=== PATIENT | male | born 1975 | race Caucasian/White ===

== ENCOUNTER 2019-03-19 14:44 | Emergency (ER) | payer SELFPAY ==
--- NOTE | 2019-03-19 16:12 | ED ---
Upper Extremity Pain - HPI Summary HPI Summary: The patient is a 43 y/o M presenting to [facility] with a chief complaint of immediate onset pain in the LUE s/p falling off a deck at 1400 today. He reports that he was standing on a deck located about 2-3 feet off the ground, when he slipped and fell. He believes he landed palm down on the left arm, and he is now experiencing pain near the medial elbow in the proximal forearm. He denies any other complaints including numbness or tingling, or RUE pain. Currently, his aching pain is rated 4-5/10 in severity, which is better than initial arrival with rating of 6-7/10. Movement aggravates the pain and rest alleviates it, although there is no significant decreased ROM. PMHx: asthma. Nonsmoker, daily EtOH, marijuana use. Medications reviewed. Allergies noted. - History of Current Complaint Chief Complaint: EDExtremityUpper Stated Complaint: ARM INJURY Time Seen by Provider: 03/19/19 16:00 Hx Obtained From: Patient Mechanism Of Injury: Fall From Height Of: - 2-3 feet off a deck Onset/Duration: Started Hours Ago - at 1400 today, Still Present Timing: Lasting Hours Severity Initially: Moderate - 6-7/10 Severity Currently: Moderate - 4-5/10 Pain Location: Elbow - left medial Character: Aching Aggravating Factor(s): Movement Alleviating Factor(s): Rest Associated Signs & Symptoms: Positive: Other - Negative: pain in RUE, decreased ROM on left. Negative: Numbness/Tingling - Allergies/Home Medications Allergies/Adverse Reactions: Allergies Allergy/AdvReac Type Severity Reaction Status Date / Time No Known Allergies Allergy Verified 03/19/19 14:51 Home Medications: Home Medications Albuterol HFA INHALER* [Ventolin HFA Inhaler*] 2 puff INH Q6H PRN 03/19/19 [ History Confirmed 03/19/19] PMH/Surg Hx/FS Hx/Imm Hx Endocrine/Hematology History: Denies: Hx Diabetes Cardiovascular History: Denies: Hx Hypercholesterolemia, Hx Hypertension Respiratory History: Reports: Hx Asthma - Surgical History Surgical History: None Surgery Procedure, Year, and Place: none Infectious Disease History: No Infectious Disease History: Denies: Traveled Outside the [place] in Last 30 Days - Family History Known Family History: Negative: Hypertension, Seizure Disorder - Social History Alcohol Use: Daily Hx Substance Use: Yes Substance Use Type: Reports: Marijuana Hx Tobacco Use: No Smoking Status (MU): Never Smoked Tobacco Review of Systems Positive: Other - Positive: pain in the LUE close to the medial elbow in the proximal forearm. Negative: pain in RUE.. Negative: Decreased ROM Negative: Numbness - or tingling All Other Systems Reviewed And Are Negative: Yes Physical Exam - Summary Physical Exam Summary: VITAL SIGNS: Reviewed. GENERAL: Patient is a well-developed and nourished male who is lying comfortable in the stretcher. Patient is not in any acute respiratory distress. HEAD AND FACE: No signs of trauma. No ecchymosis, hematomas or skull depressions. No sinus tenderness. EYES: PERRLA, EOMI x 2, No injected conjunctiva, no nystagmus. EARS: Hearing grossly intact. Ear canals and tympanic membranes are within normal limits. MOUTH: Oropharynx within normal limits. NECK: Supple, trachea is midline, no adenopathy, no JVD, no carotid bruit, no c- spine tenderness, neck with full ROM. CHEST: Symmetric, no tenderness at palpation. LUNGS: Clear to auscultation bilaterally. No wheezing or crackles. CVS: Regular rate and rhythm, S1 and S2 present, no murmurs or gallops appreciated. ABDOMEN: Soft, non-tender. No signs of distention. No rebound, no guarding, and no masses palpated. Bowel sounds are normal. EXTREMITIES: FROM in all major joints, no edema, no cyanosis or clubbing. NEURO: Alert and oriented x 3. No acute neurological deficits. Speech is normal and follows commands. SKIN: Dry and warm. Triage Information Reviewed: Yes Vital Signs On Initial Exam: Initial Vitals Temp Pulse Resp BP Pulse Ox 98.3 F 68 16 138/88 98 03/19/19 14:48 03/19/19 14:48 03/19/19 14:48 03/19/19 14:48 03/19/19 14:48 Vital Signs Reviewed: Yes Diagnostics - Vital Signs Vital Signs Temp Pulse Resp BP Pulse Ox 03/19/19 14:48 98.3 F 68 16 138/88 98 - Laboratory Lab Statement: Any lab studies that have been ordered have been reviewed, and results considered in the medical decision making process. - Radiology Left Elbow X-ray Radiology Interpretation Completed By: Radiologist Summary of Radiographic Findings: Impression: Soft tissue swelling, no fracture is seen. ED physician has reviewed this imaging report. Re-Evaluation - Re-Evaluation First Eval Re-Evaluation Time: 17:10 Comment: We discussed XR results and discharge plan. Course/Dx - Course Assessment/Plan: Patient is a 43 y/o M with chief complaint of pain in the left elbow after falling off a deck at 1400 today. No other complaints at this time including numbness or decreased ROM. Physical exam shows no obvious deficits or deformities. X-ray of the left elbow shows no fracture or dislocation. Therefore , the patient will be discharged home with follow-up with PCP. The patient is hemodynamically stable alert and oriented 3. - Diagnoses Provider Diagnoses: Elbow contusion Discharge ED - Sign-Out/Discharge Documenting (check all that apply): Patient Departure - Patient will be discharged home. Patient Received Moderate/Deep Sedation with Procedure: No - Discharge Plan Condition: Stable Disposition: HOME Patient Education Materials: Elbow Sprain (ED) Referrals: Ella Mcnair MD [Primary Care Provider] - 3 Days Additional Instructions: Follow up with your primary care provider in 2-3 days. Return to the emergency department for any new or worsening symptoms. - Billing Disposition and Condition Condition: STABLE Disposition: Home - Attestation Statements Document Initiated by George: Yes Documenting Scribe: Fartun Ramirez Provider For Whom George is Documenting (Include Credential): Dr. Yosvany Alvarado MD Scribe Attestation: Fartun Stubbs scribed for Dr. Yosavny Alvarado MD on 03/19/19 at 1838. Scribe Documentation Reviewed: Yes Provider Attestation: The documentation as recorded by the Fartun webster accurately reflects the service I personally performed and the decisions made by me, Dr. Yosvany Alvarado MD Status of [place] Document: Viewed
[2019-03-19 17:43] VITALS: BP 129/85
== END 2019-03-19 17:42 | disposition home or self-care (01) ==
LOC: ED 14:44
DX: S50.02XA Contusion of left elbow, initial encounter (principal); W19.XXXA Unspecified fall, initial encounter; Y92.9 Unspecified place or not applicable; J45.909 Unspecified asthma, uncomplicated
CPT/HCPCS: 99282